=== PATIENT | female | born 1960 | race Caucasian/White ===

== ENCOUNTER 2019-04-14 17:24 | Emergency (ER) | payer OTHER ==
[~2019-04-14] VITALS: Ht 162.6 cm; Wt 90.7 kg
[~2019-04-14 17:24] MED LIST: ASPIRIN EC81 M1 PO; IBUPROFEN 800800 M1 PO; LEVOTHYROXIN0.125 M1 PO; NEURONTIN 300300 M1 PO; XANAX 0.5 MG0.5 M1 PO
[2019-04-14 17:35] VITALS: BP 181/93
[2019-04-14] MEDS ORDERED: MEDROLDOSEPACK PO (17:37)
[2019-04-14] MEDS ORDERED: CLEOCIN HCL150 MG PO (17:37)
[2019-04-14] MEDS ORDERED: MUPIROCIN15 GM TOP ×2 (17:37→17:46)
[2019-04-14] MEDS ORDERED: CBD OIL (17:39)
[2019-04-14] MEDS ORDERED: NICOTINE TRANSD14 M1 TRANSDERM (17:39)
[2019-04-14] MEDS ORDERED: BACTRIM DS TAB1 EACH PO (17:46)
[2019-04-14] MEDS ORDERED: KEFLEX500 M1 PO (17:46)
== END 2019-04-14 17:48 | disposition home or self-care (01) ==
LOC: M.ERS 17:24
DX: H60.12 Cellulitis of left external ear (principal); L01.00 Impetigo, unspecified; F17.210 Nicotine dependence, cigarettes, uncomplicated; Z88.5 Allergy status to narcotic agent; Z88.1 Allergy status to other antibiotic agents; Z91.040 Latex allergy status; Z88.8 Allergy status to other drugs, medicaments and biological substances; Z90.710 Acquired absence of both cervix and uterus